=== PATIENT | female | born 1980 | race Two or more races ===

== ENCOUNTER 2021-10-11 06:00 | Day surgery (SDC) | payer OTHER ==
[~2021-10-11] VITALS: Ht 170.2 cm; Wt 88.0 kg
[~2021-10-11 06:00] MED LIST: ADULT LOW DOSE81 M1 PO; AMBIEN10 MG PO; B12 ACTIVE1000 MCG PO; CRESTOR5 MG PO; LITHOBID300 M1 PO; PROPRANOLOL HCL20 MG PO; VASOTEC10 MG PO
== END 2021-10-11 15:25 | disposition home or self-care (01) ==
LOC: CIR.AMB 06:00
PROVIDERS: ATTEND Colon & Rectal Surgery
DX: K60.1 Chronic anal fissure (principal); K64.8 Other hemorrhoids; I11.9 Hypertensive heart disease without heart failure; K21.9 Gastro-esophageal reflux disease without esophagitis; Z79.82 Long term (current) use of aspirin